=== PATIENT | female | born 1975 | race African-American/Black ===

== ENCOUNTER 2021-12-28 05:07 | Inpatient (IN) ==
[2021-12-28 05:49] LABS: Basophils % 0.3 % (0.0-0.8); Eosinophils # 0.1 10*3/uL (0.0-0.87); Eosinophils % 1.3 % (0.00-10.9); Hemoglobin 13.2 GM/DL (12.0-16.0); Immature Granulocytes % 0.5 %; Immature Granulocytes Absolute 0.04 #; Lymphocytes # 0.9 10*3/uL (1.4-4.0); Lymphocytes % 11.8 % (21.3-54.2); Mean Corpuscular HGB Conc 32.2 GM/DL (32-36); Mean Corpuscular Volume 89.3 FL (87-102); Mean Platelet Volume 11.9 FL (9.6-12.0); Monocytes # 0.3 10*3/uL (0.11-0.8); Monocytes % 4.3 % (1.7-12.7); Neutrophils % 81.8 % (38.7-73.9); Platelet Count 208 T/CUMM (130-400); Red Blood Count 4.59 MC/CUMM (3.8-5.5); Red Cell Distribution Width 14.1 % (9.3-17.3)
[2021-12-28 06:32] LABS: Albumin 2.5 G/DL (3.4-5.0); Bilirubin,Total 0.4 MG/DL (0.20-1.00); Calcium 8.6 MG/DL (8.5-10.1); Osmolality,Calculated 278.4 MOS/KG (273-304); Potassium 3.4 MMOL/L (3.5-5.1); Total Protein 7.2 G/DL (6.4-8.2)
[2021-12-28] MEDS ORDERED: ALBUTEROL NEB SOLN 5 MG/ML 20 ML/BOTTLE CONT NEB STA (06:33)
[2021-12-28] MEDS ORDERED: methylPREDNISolone SOD SUC 125 MG/2 ML VIAL IV STA (06:33)
[2021-12-28] MEDS ORDERED: LEVOFLOXACIN INJ 750 MG/150 ML PREMIX IV STA (08:22)
[2021-12-28] MEDS ORDERED: SODIUM CHLORIDE 0.9% 1,000 ML IV ONE ×2 (11:06→12:58)
[2021-12-28] MEDS ORDERED: DEXTROSE 10% 250 ML BAG IV PRN (11:07)
[2021-12-28] MEDS ORDERED: GLUCAGON 1 MG VIAL IM PRN (11:07)
[2021-12-28] MEDS ORDERED: ONDANSETRON 4 MG/2 ML VIAL IV PRN (11:07)
[2021-12-28] MEDS ORDERED: LEVOFLOXACIN INJ 750 MG/150 ML PREMIX IV SCH (11:30)
[2021-12-28] MEDS: ENOXAPARIN 40 MG/0.4 ML SYRINGE SUBCUT SCH (12:03)
[2021-12-28] MEDS: guaiFENesin/DM ER 600-30 MG TABLET PO SCH ×2 (12:04→20:36)
[2021-12-28] MEDS: PANTOPRAZOLE 40 MG TABLET PO SCH (12:04)
[2021-12-28] MEDS: ALBUTEROL/IPRATROPIUM 3 ML NEB RESP TX SCH ×2 (13:00→19:10)
[2021-12-28] MEDS: lisinopriL 20 MG TABLET PO SCH (14:22)
[2021-12-28] MEDS: SODIUM CHLORIDE 0.9% 1,000 ML IV SCH ×2 (16:16→20:42)
[2021-12-28] MEDS: methylPREDNISolone SOD SUC 40 MG/1 ML VIAL IV SCH (20:38)
[2021-12-29] MEDS: ALBUTEROL/IPRATROPIUM 3 ML NEB RESP TX SCH ×4 (00:34→19:52)
[2021-12-29] MEDS: SODIUM CHLORIDE 0.9% 1,000 ML IV SCH (06:43)
[2021-12-29 08:34] LABS: Basophils % 0.1 % (0.0-0.8); Hematocrit 37.7 VOL% (35.7-47.0); Hemoglobin 12.1 GM/DL (12.0-16.0); Immature Granulocytes % 0.6 %; Immature Granulocytes Absolute 0.09 #; Lymphocytes % 7.2 % (21.3-54.2); Mean Corpuscular HGB Conc 32.1 GM/DL (32-36); Mean Corpuscular Volume 90.4 FL (87-102); Mean Platelet Volume 11.7 FL (9.6-12.0); Monocytes # 0.5 10*3/uL (0.11-0.8); Monocytes % 3.8 % (1.7-12.7); Neutrophils % 88.3 % (38.7-73.9); Platelet Count 258 T/CUMM (130-400); Red Blood Count 4.17 MC/CUMM (3.8-5.5); Red Cell Distribution Width 14.4 % (9.3-17.3); White Blood Count 14.2 T/CUMM (4-12)
[2021-12-29 08:55] LABS: Albumin 2.1 G/DL (3.4-5.0); Bilirubin,Total 0.4 MG/DL (0.20-1.00); Calcium 8.1 MG/DL (8.5-10.1); Osmolality,Calculated 289.7 MOS/KG (273-304); Potassium 3.5 MMOL/L (3.5-5.1)
[2021-12-29] MEDS: LEVOFLOXACIN INJ 750 MG/150 ML PREMIX IV SCH (09:33)
[2021-12-29] MEDS: ENOXAPARIN 40 MG/0.4 ML SYRINGE SUBCUT SCH (09:34)
[2021-12-29] MEDS: guaiFENesin/DM ER 600-30 MG TABLET PO SCH ×2 (09:34→20:22)
[2021-12-29] MEDS: lisinopriL 20 MG TABLET PO SCH (09:34)
[2021-12-29] MEDS: PANTOPRAZOLE 40 MG TABLET PO SCH (09:34)
[2021-12-29] MEDS: methylPREDNISolone SOD SUC 40 MG/1 ML VIAL IV SCH ×2 (09:35→20:22)
[2021-12-29] MEDS ORDERED: FUROSEMIDE 20 MG/2 ML VIAL IV ONE ×2 (10:25→11:00)
[2021-12-29] MEDS: POTASSIUM CHLORIDE 20 MEQ TABLET PO SCH (11:16)
[2021-12-30] MEDS: ALBUTEROL/IPRATROPIUM 3 ML NEB RESP TX SCH ×4 (00:27→19:20)
[2021-12-30 05:39] LABS: Basophils % 0.2 % (0.0-0.8); Eosinophils % 0.1 % (0.00-10.9); Hematocrit 40.1 VOL% (35.7-47.0); Hemoglobin 12.4 GM/DL (12.0-16.0); Immature Granulocytes % 0.9 %; Immature Granulocytes Absolute 0.15 #; Lymphocytes # 1.3 10*3/uL (1.4-4.0); Lymphocytes % 8.1 % (21.3-54.2); Mean Corpuscular HGB Conc 30.9 GM/DL (32-36); Mean Corpuscular Volume 90.9 FL (87-102); Mean Platelet Volume 12.6 FL (9.6-12.0); Monocytes # 0.6 10*3/uL (0.11-0.8); Monocytes % 3.4 % (1.7-12.7); Neutrophils % 87.3 % (38.7-73.9); Platelet Count 287 T/CUMM (130-400); Red Blood Count 4.41 MC/CUMM (3.8-5.5); Red Cell Distribution Width 14.4 % (9.3-17.3); White Blood Count 16.3 T/CUMM (4-12)
[2021-12-30 05:56] LABS: Alanine Aminotransferase 42 U/L (13-56); Albumin 2.1 G/DL (3.4-5.0); Alkaline Phosphatase 88 U/L (45-117); Aspartate Amino Transferase 40 U/L (0-37); Bilirubin,Total < 0.39 MG/DL (0.20-1.00); Blood Urea Nitrogen 15 MG/DL (7-18); Calcium 8.4 MG/DL (8.5-10.1); Carbon Dioxide 23 MMOL/L (21-32); Chloride 114 MMOL/L (98-107); Glucose 142 MG/DL (74-106); Osmolality,Calculated 288.8 MOS/KG (273-304); Potassium 3.9 MMOL/L (3.5-5.1); Sodium 144 MMOL/L (136-145); Total Protein 7.3 G/DL (6.4-8.2)
[2021-12-30] MEDS: POTASSIUM CHLORIDE 20 MEQ TABLET PO SCH (09:12)
[2021-12-30] MEDS: guaiFENesin/DM ER 600-30 MG TABLET PO SCH ×2 (09:12→20:24)
[2021-12-30] MEDS: PANTOPRAZOLE 40 MG TABLET PO SCH (09:12)
[2021-12-30] MEDS: LEVOFLOXACIN INJ 750 MG/150 ML PREMIX IV SCH (09:13)
[2021-12-30] MEDS: lisinopriL 20 MG TABLET PO SCH (09:13)
[2021-12-30] MEDS: ENOXAPARIN 40 MG/0.4 ML SYRINGE SUBCUT SCH (09:13)
[2021-12-30] MEDS: FUROSEMIDE 40 MG/4 ML VIAL IV SCH (09:15)
[2021-12-30] MEDS: methylPREDNISolone SOD SUC 40 MG/1 ML VIAL IV SCH (09:18)
[2021-12-30 13:52] LABS: Arterial Base Excess iSTAT 3 MMOL/L (-2.5-2.5); Arterial Bicarbonate iSTAT 26.9 MMOL/L (20-26); Arterial O2 Saturation iSTAT 91 % (95-100); Arterial PCO2 iSTAT 39 MM HG (35-48); Arterial PO2 iSTAT 58 MM HG (80-95); Arterial Total CO2 iSTAT 28 MMO/L (23-27); Arterial pH iSTAT 7.452 (7.35-7.45)
[2021-12-30 14:02] LABS: Ferritin 667.1 ng/mL (8-252)
[2021-12-30] MEDS: FAMOTIDINE 20 MG TABLET PO SCH (20:24)
[2021-12-30] MEDS: ASCORBIC ACID 500 MG TABLET PO SCH (20:24)
[2021-12-30] MEDS ORDERED: REMDESIVIR 200 MG in SODIUM CHLORIDE 0.9% 210 ML IV ONE (21:00)
[2021-12-30] MEDS ORDERED: methylPREDNISolone SOD SUC 40 MG/1 ML VIAL IV SCH (21:00)
[2021-12-31] MEDS: ALBUTEROL/IPRATROPIUM 3 ML NEB RESP TX SCH ×4 (00:21→19:50)
[2021-12-31 04:38] LABS: Arterial Base Excess iSTAT 4 MMOL/L (-2.5-2.5); Arterial O2 Saturation iSTAT 89 % (95-100); Arterial PCO2 iSTAT 38 MM HG (35-48); Arterial PO2 iSTAT 52 MM HG (80-95); Arterial Total CO2 iSTAT 29 MMO/L (23-27); Arterial pH iSTAT 7.474 (7.35-7.45)
[2021-12-31 06:52] LABS: Basophils % 0.2 % (0.0-0.8); Eosinophils # 0.1 10*3/uL (0.0-0.87); Eosinophils % 0.4 % (0.00-10.9); Hematocrit 38.7 VOL% (35.7-47.0); Hemoglobin 12.2 GM/DL (12.0-16.0); Lymphocytes # 2.1 10*3/uL (1.4-4.0); Lymphocytes % 16.8 % (21.3-54.2); Mean Corpuscular HGB Conc 31.5 GM/DL (32-36); Mean Corpuscular Volume 91.5 FL (87-102); Mean Platelet Volume 11.8 FL (9.6-12.0); Monocytes # 0.4 10*3/uL (0.11-0.8); Monocytes % 3.3 % (1.7-12.7); Platelet Count 373 T/CUMM (130-400); Red Blood Count 4.23 MC/CUMM (3.8-5.5); Red Cell Distribution Width 14.6 % (9.3-17.3); White Blood Count 12.6 T/CUMM (4-12)
[2021-12-31 07:20] LABS: Albumin 2.1 G/DL (3.4-5.0); Bilirubin,Total 0.4 MG/DL (0.20-1.00); Calcium 8.2 MG/DL (8.5-10.1); Osmolality,Calculated 285.8 MOS/KG (273-304); Potassium 3.7 MMOL/L (3.5-5.1); Total Protein 7.2 G/DL (6.4-8.2)
[2021-12-31 07:27] LABS: Calcium 8.1 MG/DL (8.5-10.1); Osmolality,Calculated 286.7 MOS/KG (273-304); Potassium 3.7 MMOL/L (3.5-5.1)
[2021-12-31 07:28] LABS: Ferritin 565.7 ng/mL (8-252)
[2021-12-31 07:43] LABS: Band Neutrophils 1 % (0-10); Hypochromia 1+; Lymphocytes 13 % (20-55); Microcytosis Slight
[2021-12-31 07:44] LABS: Platelet Estimate Normal
[2021-12-31] MEDS: CHOLECALCIFEROL 1,000 UNIT TABLET PO SCH (09:21)
[2021-12-31] MEDS: ASCORBIC ACID 500 MG TABLET PO SCH ×2 (09:21→20:33)
[2021-12-31] MEDS: lisinopriL 20 MG TABLET PO SCH (09:21)
[2021-12-31] MEDS: ZINC GLUCONATE 50 MG TABLET PO SCH (09:21)
[2021-12-31] MEDS: guaiFENesin/DM ER 600-30 MG TABLET PO SCH ×2 (09:21→20:33)
[2021-12-31] MEDS: CYANOCOBALAMIN 500 MCG TABLET PO SCH (09:21)
[2021-12-31] MEDS: ENOXAPARIN 40 MG/0.4 ML SYRINGE SUBCUT SCH (09:22)
[2021-12-31] MEDS: FAMOTIDINE 20 MG TABLET PO SCH ×2 (09:22→20:33)
[2021-12-31] MEDS: FUROSEMIDE 40 MG/4 ML VIAL IV SCH (09:22)
[2021-12-31] MEDS: POTASSIUM CHLORIDE 20 MEQ TABLET PO SCH (09:23)
[2021-12-31] MEDS: DEXAMETHASONE 10 MG/1 ML VIAL IV SCH (09:27)
[2021-12-31] MEDS: LEVOFLOXACIN INJ 750 MG/150 ML PREMIX IV SCH (09:27)
[2021-12-31] MEDS: REMDESIVIR 100 MG in SODIUM CHLORIDE 0.9% 100 ML IV SCH (11:19)
[2022-01-01] MEDS: ALBUTEROL/IPRATROPIUM 3 ML NEB RESP TX SCH ×4 (00:28→20:37)
[2022-01-01 05:59] LABS: Basophils % 0.4 % (0.0-0.8); Eosinophils # 0.1 10*3/uL (0.0-0.87); Eosinophils % 0.6 % (0.00-10.9); Hematocrit 37.3 VOL% (35.7-47.0); Hemoglobin 11.8 GM/DL (12.0-16.0); Immature Granulocytes % 1.4 %; Immature Granulocytes Absolute 0.16 #; Lymphocytes # 2.4 10*3/uL (1.4-4.0); Lymphocytes % 21.8 % (21.3-54.2); Mean Corpuscular HGB Conc 31.6 GM/DL (32-36); Mean Corpuscular Volume 90.5 FL (87-102); Mean Platelet Volume 11.5 FL (9.6-12.0); Monocytes # 0.5 10*3/uL (0.11-0.8); Monocytes % 4.9 % (1.7-12.7); Neutrophils % 70.9 % (38.7-73.9); Platelet Count 323 T/CUMM (130-400); Red Blood Count 4.12 MC/CUMM (3.8-5.5); Red Cell Distribution Width 14.5 % (9.3-17.3); White Blood Count 11.1 T/CUMM (4-12)
[2022-01-01 06:31] LABS: Alanine Aminotransferase 33 U/L (13-56); Alkaline Phosphatase 90 U/L (45-117); Aspartate Amino Transferase 20 U/L (0-37); Bilirubin,Total < 0.39 MG/DL (0.20-1.00); Blood Urea Nitrogen 20 MG/DL (7-18); Calcium 8.3 MG/DL (8.5-10.1); Carbon Dioxide 27 MMOL/L (21-32); Chloride 110 MMOL/L (98-107); Glucose 113 MG/DL (74-106); Osmolality,Calculated 291.7 MOS/KG (273-304); Potassium 3.8 MMOL/L (3.5-5.1); Sodium 145 MMOL/L (136-145); Total Protein 6.9 G/DL (6.4-8.2)
[2022-01-01 06:33] LABS: Alanine Aminotransferase 33 U/L (13-56); Alkaline Phosphatase 89 U/L (45-117); Aspartate Amino Transferase 21 U/L (0-37); Bilirubin,Indirect 0.3 MG/DL (0.0-1.0); Bilirubin,Total < 0.39 MG/DL (0.20-1.00); Total Protein 6.8 G/DL (6.4-8.2)
[2022-01-01] MEDS: CHOLECALCIFEROL 1,000 UNIT TABLET PO SCH (10:45)
[2022-01-01] MEDS: ENOXAPARIN 40 MG/0.4 ML SYRINGE SUBCUT SCH (10:45)
[2022-01-01] MEDS: FUROSEMIDE 40 MG/4 ML VIAL IV SCH (10:45)
[2022-01-01] MEDS: FAMOTIDINE 20 MG TABLET PO SCH ×2 (10:46→21:55)
[2022-01-01] MEDS: POTASSIUM CHLORIDE 20 MEQ TABLET PO SCH (10:46)
[2022-01-01] MEDS: guaiFENesin/DM ER 600-30 MG TABLET PO SCH ×2 (10:46→21:55)
[2022-01-01] MEDS: lisinopriL 20 MG TABLET PO SCH (10:46)
[2022-01-01] MEDS: CYANOCOBALAMIN 500 MCG TABLET PO SCH (10:46)
[2022-01-01] MEDS: ASCORBIC ACID 500 MG TABLET PO SCH ×2 (10:47→21:55)
[2022-01-01] MEDS: ZINC GLUCONATE 50 MG TABLET PO SCH (10:47)
[2022-01-01] MEDS: REMDESIVIR 100 MG in SODIUM CHLORIDE 0.9% 100 ML IV SCH (10:47)
[2022-01-01] MEDS: LEVOFLOXACIN INJ 750 MG/150 ML PREMIX IV SCH (10:48)
[2022-01-01] MEDS: DEXAMETHASONE 10 MG/1 ML VIAL IV SCH (10:48)
[2022-01-02] MEDS: ALBUTEROL/IPRATROPIUM 3 ML NEB RESP TX SCH ×4 (00:36→20:10)
[2022-01-02 05:54] LABS: Basophils % 0.3 % (0.0-0.8); Eosinophils % 0.3 % (0.00-10.9); Hematocrit 37.9 VOL% (35.7-47.0); Hemoglobin 11.9 GM/DL (12.0-16.0); Immature Granulocytes % 1.7 %; Immature Granulocytes Absolute 0.22 #; Lymphocytes # 2.8 10*3/uL (1.4-4.0); Lymphocytes % 22.1 % (21.3-54.2); Mean Corpuscular HGB Conc 31.4 GM/DL (32-36); Mean Corpuscular Volume 90.2 FL (87-102); Mean Platelet Volume 11.2 FL (9.6-12.0); Monocytes # 0.6 10*3/uL (0.11-0.8); Monocytes % 4.6 % (1.7-12.7); Platelet Count 312 T/CUMM (130-400); Red Cell Distribution Width 14.5 % (9.3-17.3); White Blood Count 12.7 T/CUMM (4-12)
[2022-01-02 06:11] LABS: Calcium 8.2 MG/DL (8.5-10.1); Osmolality,Calculated 290.7 MOS/KG (273-304); Potassium 4.3 MMOL/L (3.5-5.1)
[2022-01-02 06:14] LABS: Alanine Aminotransferase 28 U/L (13-56); Albumin 2.1 G/DL (3.4-5.0); Alkaline Phosphatase 86 U/L (45-117); Aspartate Amino Transferase 18 U/L (0-37); Bilirubin,Total < 0.39 MG/DL (0.20-1.00); Blood Urea Nitrogen 20 MG/DL (7-18); Calcium 8.7 MG/DL (8.5-10.1); Carbon Dioxide 28 MMOL/L (21-32); Chloride 110 MMOL/L (98-107); Glucose 102 MG/DL (74-106); Osmolality,Calculated 285.1 MOS/KG (273-304); Potassium 3.9 MMOL/L (3.5-5.1); Sodium 142 MMOL/L (136-145); Total Protein 6.8 G/DL (6.4-8.2)
[2022-01-02] MEDS: LEVOFLOXACIN INJ 750 MG/150 ML PREMIX IV SCH (09:30)
[2022-01-02] MEDS: ENOXAPARIN 40 MG/0.4 ML SYRINGE SUBCUT SCH (09:30)
[2022-01-02] MEDS: ASCORBIC ACID 500 MG TABLET PO SCH ×2 (09:31→21:07)
[2022-01-02] MEDS: FAMOTIDINE 20 MG TABLET PO SCH ×2 (09:31→21:07)
[2022-01-02] MEDS: ZINC GLUCONATE 50 MG TABLET PO SCH (09:31)
[2022-01-02] MEDS: POTASSIUM CHLORIDE 20 MEQ TABLET PO SCH (09:31)
[2022-01-02] MEDS: CYANOCOBALAMIN 500 MCG TABLET PO SCH (09:31)
[2022-01-02] MEDS: guaiFENesin/DM ER 600-30 MG TABLET PO SCH ×2 (09:32→21:07)
[2022-01-02] MEDS: REMDESIVIR 100 MG in SODIUM CHLORIDE 0.9% 100 ML IV SCH (09:32)
[2022-01-02] MEDS: FUROSEMIDE 40 MG/4 ML VIAL IV SCH (09:33)
[2022-01-02] MEDS: CHOLECALCIFEROL 1,000 UNIT TABLET PO SCH (09:33)
[2022-01-02] MEDS: DEXAMETHASONE 10 MG/1 ML VIAL IV SCH (09:33)
[2022-01-02] MEDS: lisinopriL 20 MG TABLET PO SCH (09:33)
[2022-01-03] MEDS: ALBUTEROL/IPRATROPIUM 3 ML NEB RESP TX SCH ×4 (00:30→19:43)
[2022-01-03 06:31] LABS: Basophils % 0.2 % (0.0-0.8); Eosinophils # 0.1 10*3/uL (0.0-0.87); Eosinophils % 0.5 % (0.00-10.9); Hematocrit 38.6 VOL% (35.7-47.0); Hemoglobin 12.1 GM/DL (12.0-16.0); Immature Granulocytes % 2.6 %; Immature Granulocytes Absolute 0.32 #; Lymphocytes # 2.5 10*3/uL (1.4-4.0); Lymphocytes % 20.7 % (21.3-54.2); Mean Corpuscular HGB Conc 31.3 GM/DL (32-36); Mean Corpuscular Volume 91.5 FL (87-102); Mean Platelet Volume 11.1 FL (9.6-12.0); Monocytes # 0.7 10*3/uL (0.11-0.8); Platelet Count 336 T/CUMM (130-400); Red Blood Count 4.22 MC/CUMM (3.8-5.5); Red Cell Distribution Width 14.3 % (9.3-17.3); White Blood Count 12.1 T/CUMM (4-12)
[2022-01-03 06:52] LABS: Alanine Aminotransferase 28 U/L (13-56); Albumin 2.1 G/DL (3.4-5.0); Alkaline Phosphatase 87 U/L (45-117); Aspartate Amino Transferase 12 U/L (0-37); Bilirubin,Total < 0.39 MG/DL (0.20-1.00); Blood Urea Nitrogen 22 MG/DL (7-18); Calcium 8.4 MG/DL (8.5-10.1); Carbon Dioxide 29 MMOL/L (21-32); Chloride 106 MMOL/L (98-107); Glucose 118 MG/DL (74-106); Osmolality,Calculated 284.3 MOS/KG (273-304); Potassium 4.1 MMOL/L (3.5-5.1); Sodium 141 MMOL/L (136-145)
[2022-01-03] MEDS: ENOXAPARIN 40 MG/0.4 ML SYRINGE SUBCUT SCH (10:43)
[2022-01-03] MEDS: DEXAMETHASONE 10 MG/1 ML VIAL IV SCH (10:47)
[2022-01-03] MEDS: POTASSIUM CHLORIDE 20 MEQ TABLET PO SCH (10:48)
[2022-01-03] MEDS: FUROSEMIDE 40 MG/4 ML VIAL IV SCH (10:48)
[2022-01-03] MEDS: FAMOTIDINE 20 MG TABLET PO SCH ×2 (10:54→22:21)
[2022-01-03] MEDS: ZINC GLUCONATE 50 MG TABLET PO SCH (10:54)
[2022-01-03] MEDS: guaiFENesin/DM ER 600-30 MG TABLET PO SCH ×2 (10:54→22:21)
[2022-01-03] MEDS: CHOLECALCIFEROL 1,000 UNIT TABLET PO SCH (10:54)
[2022-01-03] MEDS: CYANOCOBALAMIN 500 MCG TABLET PO SCH (10:54)
[2022-01-03] MEDS: ASCORBIC ACID 500 MG TABLET PO SCH ×2 (10:55→22:21)
[2022-01-03] MEDS: lisinopriL 20 MG TABLET PO SCH (10:56)
[2022-01-03] MEDS: LEVOFLOXACIN INJ 750 MG/150 ML PREMIX IV SCH (10:57)
[2022-01-03] MEDS: REMDESIVIR 100 MG in SODIUM CHLORIDE 0.9% 100 ML IV SCH (17:58)
[2022-01-04] MEDS: ALBUTEROL/IPRATROPIUM 3 ML NEB RESP TX SCH ×4 (00:28→19:42)
[2022-01-04] MEDS: ASCORBIC ACID 500 MG TABLET PO SCH ×2 (08:53→20:50)
[2022-01-04] MEDS: FAMOTIDINE 20 MG TABLET PO SCH ×2 (08:53→20:50)
[2022-01-04] MEDS: CYANOCOBALAMIN 500 MCG TABLET PO SCH (08:53)
[2022-01-04] MEDS: CHOLECALCIFEROL 1,000 UNIT TABLET PO SCH (08:53)
[2022-01-04] MEDS: lisinopriL 20 MG TABLET PO SCH (08:53)
[2022-01-04] MEDS: POTASSIUM CHLORIDE 20 MEQ TABLET PO SCH (08:53)
[2022-01-04] MEDS: guaiFENesin/DM ER 600-30 MG TABLET PO SCH ×2 (08:53→20:50)
[2022-01-04] MEDS: ZINC GLUCONATE 50 MG TABLET PO SCH (08:53)
[2022-01-04] MEDS: DEXAMETHASONE 10 MG/1 ML VIAL IV SCH (08:55)
[2022-01-04] MEDS: FUROSEMIDE 40 MG/4 ML VIAL IV SCH (09:00)
[2022-01-04] MEDS: LEVOFLOXACIN INJ 750 MG/150 ML PREMIX IV SCH (09:01)
[2022-01-04] MEDS: ENOXAPARIN 40 MG/0.4 ML SYRINGE SUBCUT SCH (09:02)
[2022-01-04] MEDS: predniSONE 20 MG TABLET PO SCH (11:55)
[2022-01-04] MEDS: BUDESONIDE/FORMOTEROL 160-4.5 INHALER 6 GM INH SCH ×2 (12:16→20:50)
[2022-01-05] MEDS: ALBUTEROL/IPRATROPIUM 3 ML NEB RESP TX SCH ×4 (00:19→20:25)
[2022-01-05 05:41] LABS: Basophils % 0.3 % (0.0-0.8); Eosinophils % 0.3 % (0.00-10.9); Hematocrit 38.3 VOL% (35.7-47.0); Immature Granulocytes % 4.3 %; Immature Granulocytes Absolute 0.51 #; Lymphocytes # 2.8 10*3/uL (1.4-4.0); Lymphocytes % 23.6 % (21.3-54.2); Mean Corpuscular HGB Conc 31.3 GM/DL (32-36); Mean Corpuscular Volume 91.4 FL (87-102); Mean Platelet Volume 11.5 FL (9.6-12.0); Monocytes % 8.6 % (1.7-12.7); Neutrophils % 62.9 % (38.7-73.9); Platelet Count 332 T/CUMM (130-400); Red Blood Count 4.19 MC/CUMM (3.8-5.5); Red Cell Distribution Width 14.5 % (9.3-17.3); White Blood Count 11.7 T/CUMM (4-12)
[2022-01-05 05:59] LABS: Calcium 8.1 MG/DL (8.5-10.1); Osmolality,Calculated 286.1 MOS/KG (273-304); Potassium 4.1 MMOL/L (3.5-5.1)
[2022-01-05 06:06] LABS: Band Neutrophils 1 % (0-10); Eosinophils 1 % (0-10); Lymphocytes 16 % (20-55); Nucleated Red Blood Cells 1 /100 WBC (0-5); Platelet Estimate Adequate; Total Cells Counted 100
[2022-01-05] MEDS: FUROSEMIDE 40 MG/4 ML VIAL IV SCH (09:41)
[2022-01-05] MEDS: guaiFENesin/DM ER 600-30 MG TABLET PO SCH ×2 (09:42→20:28)
[2022-01-05] MEDS: ENOXAPARIN 40 MG/0.4 ML SYRINGE SUBCUT SCH (09:42)
[2022-01-05] MEDS: CYANOCOBALAMIN 500 MCG TABLET PO SCH (09:42)
[2022-01-05] MEDS: POTASSIUM CHLORIDE 20 MEQ TABLET PO SCH (09:42)
[2022-01-05] MEDS: lisinopriL 20 MG TABLET PO SCH (09:42)
[2022-01-05] MEDS: LEVOFLOXACIN INJ 750 MG/150 ML PREMIX IV SCH (09:42)
[2022-01-05] MEDS: predniSONE 20 MG TABLET PO SCH (09:42)
[2022-01-05] MEDS: FAMOTIDINE 20 MG TABLET PO SCH ×2 (09:42→20:28)
[2022-01-05] MEDS: CHOLECALCIFEROL 1,000 UNIT TABLET PO SCH (09:42)
[2022-01-05] MEDS: ZINC GLUCONATE 50 MG TABLET PO SCH (09:42)
[2022-01-05] MEDS: ASCORBIC ACID 500 MG TABLET PO SCH ×2 (09:42→20:28)
[2022-01-05] MEDS: BUDESONIDE/FORMOTEROL 160-4.5 INHALER 6 GM INH SCH ×2 (09:42→20:28)
[2022-01-05] MEDS ORDERED: ACETAMINOPHEN 325 MG TABLET PO PRN (13:38)
[2022-01-06] MEDS: ALBUTEROL/IPRATROPIUM 3 ML NEB RESP TX SCH ×4 (00:29→19:53)
[2022-01-06] MEDS: CYANOCOBALAMIN 500 MCG TABLET PO SCH (10:25)
[2022-01-06] MEDS: CHOLECALCIFEROL 1,000 UNIT TABLET PO SCH (10:25)
[2022-01-06] MEDS: POTASSIUM CHLORIDE 20 MEQ TABLET PO SCH (10:25)
[2022-01-06] MEDS: ENOXAPARIN 40 MG/0.4 ML SYRINGE SUBCUT SCH (10:26)
[2022-01-06] MEDS: ZINC GLUCONATE 50 MG TABLET PO SCH (10:26)
[2022-01-06] MEDS: FAMOTIDINE 20 MG TABLET PO SCH ×2 (10:26→21:31)
[2022-01-06] MEDS: FUROSEMIDE 40 MG/4 ML VIAL IV SCH (10:26)
[2022-01-06] MEDS: ASCORBIC ACID 500 MG TABLET PO SCH ×2 (10:26→21:31)
[2022-01-06] MEDS: guaiFENesin/DM ER 600-30 MG TABLET PO SCH ×2 (10:26→21:31)
[2022-01-06] MEDS: lisinopriL 20 MG TABLET PO SCH (10:27)
[2022-01-06] MEDS: BUDESONIDE/FORMOTEROL 160-4.5 INHALER 6 GM INH SCH ×2 (10:27→21:31)
[2022-01-06] MEDS: predniSONE 20 MG TABLET PO SCH (10:27)
[2022-01-07] MEDS: ALBUTEROL/IPRATROPIUM 3 ML NEB RESP TX SCH ×2 (00:30→07:00)
[2022-01-07 05:39] LABS: Calcium 8.6 MG/DL (8.5-10.1); Osmolality,Calculated 274.8 MOS/KG (273-304); Potassium 4.5 MMOL/L (3.5-5.1)
[2022-01-07 07:16] LABS: Basophils % 0.2 % (0.0-0.8); Eosinophils # 0.1 10*3/uL (0.0-0.87); Eosinophils % 0.8 % (0.00-10.9); Hematocrit 39.9 VOL% (35.7-47.0); Hemoglobin 12.7 GM/DL (12.0-16.0); Immature Granulocytes % 3.5 %; Immature Granulocytes Absolute 0.46 #; Lymphocytes # 4.4 10*3/uL (1.4-4.0); Lymphocytes % 33.2 % (21.3-54.2); Mean Corpuscular HGB Conc 31.8 GM/DL (32-36); Mean Corpuscular Volume 90.1 FL (87-102); Monocytes # 0.9 10*3/uL (0.11-0.8); Monocytes % 6.8 % (1.7-12.7); Neutrophils % 55.5 % (38.7-73.9); Platelet Count 349 T/CUMM (130-400); Red Blood Count 4.43 MC/CUMM (3.8-5.5); Red Cell Distribution Width 14.6 % (9.3-17.3); White Blood Count 13.1 T/CUMM (4-12)
[2022-01-07 07:35] LABS: Lymphocytes 11 % (20-55); Platelet Estimate Normal; Total Cells Counted 100
[2022-01-07] MEDS ORDERED: CETIRIZINE 10 MG TABLET PO SCH (09:00)
[2022-01-07] MEDS: lisinopriL 20 MG TABLET PO SCH (09:02)
[2022-01-07] MEDS: ZINC GLUCONATE 50 MG TABLET PO SCH (09:47)
[2022-01-07] MEDS: CHOLECALCIFEROL 1,000 UNIT TABLET PO SCH (09:47)
[2022-01-07] MEDS: ASCORBIC ACID 500 MG TABLET PO SCH (09:47)
[2022-01-07] MEDS: ENOXAPARIN 40 MG/0.4 ML SYRINGE SUBCUT SCH (09:47)
[2022-01-07] MEDS: CYANOCOBALAMIN 500 MCG TABLET PO SCH (09:47)
[2022-01-07] MEDS: FUROSEMIDE 40 MG/4 ML VIAL IV SCH (09:47)
[2022-01-07] MEDS: predniSONE 20 MG TABLET PO SCH (09:47)
[2022-01-07] MEDS: BUDESONIDE/FORMOTEROL 160-4.5 INHALER 6 GM INH SCH (09:48)
[2022-01-07] MEDS: guaiFENesin/DM ER 600-30 MG TABLET PO SCH (09:48)
[2022-01-07] MEDS: FAMOTIDINE 20 MG TABLET PO SCH (09:48)
[2022-01-07] MEDS: POTASSIUM CHLORIDE 20 MEQ TABLET PO SCH (09:48)
[2022-01-07 14:37] VITALS: BP 111/67
== END 2022-01-07 14:08 | disposition home or self-care (01) | DRG 137 ==
LOC: N.EDINP 05:07 → N.ED 05:07 → N.5E 13:34 → SUATTDRO 12-29 08:00
PROVIDERS: ADMIT Family Medicine; ATTEND Internal Medicine